=== PATIENT | male | born 1980 | race Caucasian/White ===

== ENCOUNTER 2024-05-04 20:55 | Emergency (ER) | payer SELFPAY ==
[~2024-05-04] VITALS: Ht 172.7 cm; Wt 81.6 kg
[2024-05-04 22:43] LABS: BASOPHILS % (AUTO) 0.1 % (0.0-2.0); EOSINOPHILS # (AUTO) 0.1 K/uL (0.0-0.7); EOSINOPHILS % (AUTO) 1.8 % (0.0-7.0); HEMATOCRIT 43.1 % (36.7-47.1); HEMOGLOBIN 14.7 g/dL (12.5-16.3); LYMPHOCYTES # (AUTO) 2.8 K/uL (0.8-4.8); LYMPHOCYTES % (AUTO) 38.1 % (20.5-51.5); MEAN CORPUSCULAR HEMOGLOBIN 30.4 uug (23.8-33.4); MEAN CORPUSCULAR HGB CONC 34 g/dL (32.5-36.3); MEAN CORPUSCULAR VOLUME 89.6 fL (73.0-96.2); MONOCYTES # (AUTO) 0.7 K/uL (0.1-1.30); MONOCYTES % (AUTO) 10.1 % (0.0-11.0); NEUTROPHILS # (AUTO) 3.7 K/uL (1.8-8.9); NEUTROPHILS % (AUTO) 49.9 % (38.5-71.5); PLATELET COUNT (AUTO) 239 K/uL (152-348); RED BLOOD CELL COUNT(AUTO) 4.82 MIL/uL (4.06-5.63); RED CELL DISTRIBUTION WIDTH 12.4 % (12.1-16.2); WHITE BLOOD COUNT (AUTO) 7.3 K/uL (3.6-10.2)
[2024-05-04] MEDS ORDERED: LIDOCAINE VISCUS 2% 15 ML UDC ONE (22:45)
[2024-05-04] MEDS ORDERED: DICYCLOMINE HCL LIQ 10 MG/5 ML UDC ONE (22:45)
[2024-05-04] MEDS ORDERED: MAG HYDROX/AL HYDROX/SIMETH 30 ML LIQUID UDC ONE (22:45)
[2024-05-04] MEDS ORDERED: ONDANSETRON 4 MG/2 ML VIAL ONE (22:45)
[2024-05-04] MEDS: IV NORMAL SALINE 1000 ML BAG IV ONE (22:53)
[2024-05-04] MEDS: LIDOCAINE VISCUS 2% 15 ML UDC MM ONE (22:53)
[2024-05-04] MEDS: ONDANSETRON 4 MG/2 ML VIAL IV ONE (22:53)
[2024-05-04] MEDS: DICYCLOMINE HCL LIQ 10 MG/5 ML UDC PO ONE (22:53)
[2024-05-04] MEDS: MAG HYDROX/AL HYDROX/SIMETH 30 ML LIQUID UDC PO ONE (22:53)
[2024-05-04] MEDS ORDERED: PANTOPRAZOLE SODIUM 40 MG VIAL ONE (22:55)
[2024-05-04] MEDS: PANTOPRAZOLE SODIUM 40 MG VIAL IV ONE (22:59)
[2024-05-04 23:04] LABS: ALBUMIN 3.8 g/dL (3.4-5.0); BILIRUBIN,DIRECT 0.1 mg/dL (0.0-0.2); BILIRUBIN,TOTAL 0.3 mg/dL (0.2-1.0); CALCIUM 9.3 mg/dL (8.5-10.1); CREATININE 0.8 mg/dL (0.6-1.3); POTASSIUM 3.6 mmol/L (3.5-5.1); TOTAL PROTEIN, SERUM 7.6 g/dL (6.4-8.2)
[2024-05-04] MEDS ORDERED: HYDROMORPHONE 1 MG/1 ML DISP.SYRIN IV ONE (23:15)
[2024-05-04] MEDS ORDERED: PANT40TA2 PO (23:31)
[2024-05-04] MEDS ORDERED: HYDR-4209 PO (23:31)
[2024-05-04] MEDS ORDERED: HYDROMORPHONE 2 MG/1 ML DISP.SYRIN ONE (23:49)
[2024-05-05 01:33] VITALS: BP 136/65; TEMP 98.1; O2SAT 98
== END 2024-05-05 01:35 | disposition home or self-care (01) ==
LOC: ER 20:56
DX: R10.13 Epigastric pain (principal); G89.29 Other chronic pain; F17.210 Nicotine dependence, cigarettes, uncomplicated; Z79.899 Other long term (current) drug therapy
CPT/HCPCS: 99284; 96374; 96361; 96375; 80076; 80048; 83690; 85025; 36415; J2405; J2470; J1171; J7040; A4606; A4663